=== PATIENT | male | born 1970 | race Caucasian/White ===

== ENCOUNTER 2024-02-22 23:24 | Inpatient (IN) ==
--- NOTE | 2024-02-23 00:05 | Emergency Department Note ---
History of Present Illness General Chief complaint: Groin Pain Stated complaint: SEVERE SHARP ABD/GROIN, VOMITING, FEVER, CHILLS Time Seen by Provider: 02/22/24 23:45 History of Present Illness Maximum Pain Intensity: 8 This is a 54-year-old male presenting to the emergency department for evaluation of very low abdominal pain and fever. Patient symptoms began around 5 AM on 02/22/2024. The discomfort was very low in the abdomen and near the rectum. The patient is usually healthy taking medication for blood pressure and dyslipidemia. He has been running a fever off and on today, and explains that his symptoms have otherwise been waxing and waning. The patient discomfort increased tonight, prompting presentation to the ER. He feels like he is using the bathroom fairly normally. His pain does not lateralize to 1 side of the abdomen or the other. He has not had symptoms like this in the past. Discomfort is currently rated an 8/10. No history of abdominal surgery. Home Medications Medication Instructions Recorded Confirmed Type atorvastatin 40 mg tablet 40 mg PO QAM 02/23/24 02/23/24 History losartan 50 mg tablet 50 mg PO QAM 02/23/24 02/23/24 History Allergies Allergy/AdvReac Type Severity Reaction Status Date / Time No Known Allergies Allergy Verified 02/23/24 01:21 Past Med/Surg History Medical History No chronic diseases present Surgical History No significant past surgical history Social History Smoking Status: Never smoker Preferred Language: [place] Island[place] Feels Safe at Home: Yes Review of Systems A total of 10 systems reviewed and were otherwise negative Physical Exam Vital Signs Vital Signs - 24 hr 02/22/24 23:33 02/22/24 23:52 02/23/24 00:03 Temperature 37.9 C H Temperature Source Oral Pulse Rate 92 H 112 H Pulse Rate [Finger] 112 H Respiratory Rate 18 17 19 Respiratory Effort / Characteristics Non-Labored Spontaneous Respiratory Depth Normal Respiratory Pattern Regular Blood Pressure 123/73 Blood Pressure [Right Arm] 140/93 Blood Pressure Mean 89 Blood Pressure Mean [Right Arm] 108 Blood Pressure Position Sitting Pulse Oximetry 92 92 91 Oxygen Delivery Method Room Air Room Air Room Air Oxygen Flow Rate 0 Sepsis Recent Fever Within 48 Hours Yes Sepsis New/Unexplained Change in Mental Status N/A Sepsis Action Taken by Nursing No Action Required 02/23/24 00:22 02/23/24 01:20 02/23/24 03:00 Temperature Temperature Source Pulse Rate 113 H Pulse Rate [Finger] 114 H 119 H Respiratory Rate 19 19 Respiratory Effort / Characteristics Respiratory Depth Respiratory Pattern Blood Pressure Blood Pressure [Right Arm] 152/78 H 118/72 Blood Pressure Mean Blood Pressure Mean [Right Arm] 102 87 Blood Pressure Position Pulse Oximetry 93 93 Oxygen Delivery Method Room Air Room Air Oxygen Flow Rate Sepsis Recent Fever Within 48 Hours Sepsis New/Unexplained Change in Mental Status Sepsis Action Taken by Nursing 02/23/24 05:00 02/23/24 05:00 02/23/24 06:00 Temperature Temperature Source Pulse Rate 108 H Pulse Rate [Finger] 99 H 97 H Respiratory Rate 19 13 Respiratory Effort / Characteristics Respiratory Depth Respiratory Pattern Blood Pressure Blood Pressure [Right Arm] 107/79 133/70 Blood Pressure Mean Blood Pressure Mean [Right Arm] 88 91 Blood Pressure Position Pulse Oximetry 94 94 Oxygen Delivery Method Room Air Room Air Oxygen Flow Rate Sepsis Recent Fever Within 48 Hours Sepsis New/Unexplained Change in Mental Status Sepsis Action Taken by Nursing VITALS: Vitals are noted on the nurse's note and reviewed by myself. Vital signs with fever and tachycardia GENERAL: Well-developed, well-nourished, white male, who is in no acute distress and resting comfortably. Patient is cooperative with the examination. HEAD: Normocephalic atraumatic. EARS: External ear normal. External auditory canals clear, tympanic membranes pearly dukes without erythema or effusion bilaterally. EYES: Pupils equal round and reactive to light and accommodation. Conjunctivae without injection, sclerae without icterus. Extraocular movements intact. NOSE: Patent, turbinates without inflammation or discharge. MOUTH: Mucous membranes moist. Tonsils are not enlarged. Pharynx without erythema, blood, or exudate. Uvula midline. Airway patent. NECK: Supple without nuchal rigidity. No lymphadenopathy. No thyromegaly. Cervical spine is nontender. HEART: Regular rate and rhythm without murmurs gallops or rubs. LUNGS: Clear to auscultation bilaterally without wheezes, rales or rhonchi. No retractions or accessory muscle use. ABDOMEN: Positive normal bowel sounds x 4. Soft, nontender, without masses or organomegaly. No guarding or rebound tenderness. MUSCULOSKELETAL: No muscle atrophy, erythema, or edema noted. Full range of motion in all extremities. Course Administered Medications Discontinued Medications Sodium Chloride (Nss) 1,000 mls @ 999 mls/hr IV .Q1H1M LAUREN Stop: 02/23/24 00:45 Last Infusion: 02/23/24 02:36 Dose: Infused Documented By: Admin: 02/23/24 01:22 Dose: 999 mls/hr Documented By: YAZMIN Acetaminophen (Ofirmev) 1,000 mg in 100 mls @ 400 mls/hr IV NOW STA Stop: 02/23/24 00:15 Last Infusion: 02/23/24 02:36 Dose: Infused Documented By: Admin: 02/23/24 01:31 Dose: 400 mls/hr Documented By: YAZMIN Sodium Chloride (Nss) 1,000 mls @ 999 mls/hr IV .Q1H1M LAUREN Stop: 02/23/24 01:15 Last Infusion: 02/23/24 02:36 Dose: Infused Documented By: Admin: 02/23/24 01:32 Dose: 999 mls/hr Documented By: YAZMIN Piperacillin Sod/Tazobactam Sod (Zosyn) 4.5 gm in 100 mls @ 200 mls/hr IV NOW ONE Stop: 02/23/24 06:06 Last Admin: 02/23/24 06:15 Dose: 200 mls/hr Documented By: YAZMIN Ioversol (Optiray 320 100ml) 93 ml IV ONCE ONE Stop: 02/23/24 01:49 Last Admin: 02/23/24 01:48 Dose: 93 ml Documented By: CINTHYA Morphine Sulfate (Morphine Sulfate 4 Mg/Ml 1 Ml Carp\Vial) 4 mg IV Q30M PRN PRN Reason: Pain Stop: 03/07/24 23:58 Last Admin: 02/23/24 01:24 Dose: 4 mg Documented By: YAZMIN Ondansetron HCl (Ondansetron Inj 2 Mg/Ml 2 Ml Vial) 4 mg IV NOW STA Stop: 02/23/24 00:00 Last Admin: 02/23/24 01:22 Dose: 4 mg Documented By: YAZMIN Medical Decision Making Differential Diagnosis Differential diagnosis: Etiologies such as biliary colic, cholecystitis, hepatitis, pancreatitis, cardiac disease, pancreatitis, gastritis, peptic ulcer disease, appendicitis, cystitis, diverticulitis, mesenteric ischemia, inflammatory bowel disease, ileus, bowel obstruction, testicular/adnexal torsion, aortic pathology, shingles, as well as others were considered Laboratory Data 02/23/24 00:04 02/23/24 00:04 Lab Results 02/23/24 02/23/24 02/23/24 Range/Units 00:04 00:06 01:20 WBC 10.94 H (4.8-10.8) K/ul RBC 4.74 (4.70-6.10) M/uL Hgb 14.2 (14.0-18.0) g/dl Hct 40.9 L (42.0-52.0) % MCV 86.3 (80.0-100.0) fL MCH 30.0 (25.0-34.0) pg MCHC 34.7 (32.0-36.0) g/dL RDW Std Deviation 39.7 (36.4-46.3) fL RDW Coeff of Sandra 12.7 (11.5-14.5) % Plt Count 180 (130-400) K/uL MPV 10.3 (9.4-12.4) fL Immature Gran % (Auto) 0.5 % Neut % (Auto) 86.7 % Lymph % (Auto) 5.4 % [place] % (Auto) 6.8 % Eos % (Auto) 0.1 % Baso % (Auto) 0.5 % Neut # (Auto) 9.49 H (1.40-6.50) K/uL Lymph # (Auto) 0.59 L (1.20-3.40) K/uL [place] # (Auto) 0.74 H (0.11-0.59) K/uL Eos # (Auto) 0.01 (0.00-0.50) K/uL Baso # (Auto) 0.05 (0.00-0.20) K/uL Immature Gran # (Auto) 0.06 (0.01-0.20) K/uL Sodium 138 (136-145) mmol/L Potassium 3.5 (3.5-5.1) mmol/L Chloride 105 (98-107) mmol/L Carbon Dioxide 23 (21-32) mmol/L Anion Gap 10 (3-11) BUN 21 (6-23) mg/dl Creatinine 1.09 (0.6-1.4) mg/dl Est Cr Clr Drug Dosing 90.1 ml/min Est GFR ( Amer) 88.7 ml/min Est GFR (Non-Af Amer) 76.5 ml/min BUN/Creatinine Ratio 19.3 (10-20) Glucose 167 H (70-99(Fasting)) mg/dl Lactate 1.5 (0.4-2.0) mmol/L Calcium 9.0 (8.6-10.3) mg/dl Total Bilirubin 0.8 (0.2-1.0) mg/dl AST 19 (13-39) U/L ALT 20 (7-52) U/L Alkaline Phosphatase 56 (34-104) U/L Troponin I High Sens 2.7 (0-20) pg/ml Total Protein 6.4 (6.0-8.3) gm/dl Albumin 4.2 (3.4-5.0) gm/dl Globulin 2.2 L (2.5-4.0) gm/dl Albumin/Globulin Ratio 1.9 (0.9-2) Lipase 11 (11-82) U/L Urine Color Urine Appearance (Clear) Urine pH (4.5-7.5) Ur Specific [place] (1.000-1.030) Urine Protein (Negative) Urine Glucose (UA) (Negative) Urine Ketones (Negative) Urine Blood (Negative) Urine Nitrite (Negative) Urine Bilirubin (Negative) Urine Urobilinogen (Negative) Ur Leukocyte Esterase (Negative) Adenovirus (PCR) Not Detected (NotDetected) B. pertussis DNA (PCR) Not Detected (NotDetected) B.parapertussis DNA PCR Not Detected (NotDetected) C. pneumoniae DNA (PCR) Not Detected (NotDetected) Coronavirus OC43 (PCR) Not Detected (NotDetected) Coronavirus HKU1 (PCR) Not Detected (NotDetected) Coronavirus 229E (PCR) Not Detected (NotDetected) SARS-CoV-2 (PCR) Not Detected (NotDetected) Coronavirus NL63 (PCR) Not Detected (NotDetected) Human Metapneumovir PCR Not Detected (NotDetected) Influenza Type A (PCR) Not Detected (NotDetected) Influenza Type B (PCR) Not Detected (NotDetected) M. pneumoniae (PCR) Not Detected (NotDetected) Parainfluenza 1 (PCR) Not Detected (NotDetected) Parainfluenza 2 (PCR) Not Detected (NotDetected) Parainfluenza 3 (PCR) Not Detected (NotDetected) Parainfluenza 4 (PCR) Not Detected (NotDetected) RSV (PCR) Not Detected (NotDetected) Entero/Rhino (PCR) Not Detected (NotDetected) 02/23/24 Range/Units 03:15 WBC (4.8-10.8) K/ul RBC (4.70-6.10) M/uL Hgb (14.0-18.0) g/dl Hct (42.0-52.0) % MCV (80.0-100.0) fL MCH (25.0-34.0) pg MCHC (32.0-36.0) g/dL RDW Std Deviation (36.4-46.3) fL RDW Coeff of Sandra (11.5-14.5) % Plt Count (130-400) K/uL MPV (9.4-12.4) fL Immature Gran % (Auto) % Neut % (Auto) % Lymph % (Auto) % [place] % (Auto) % Eos % (Auto) % Baso % (Auto) % Neut # (Auto) (1.40-6.50) K/uL Lymph # (Auto) (1.20-3.40) K/uL [place] # (Auto) (0.11-0.59) K/uL Eos # (Auto) (0.00-0.50) K/uL Baso # (Auto) (0.00-0.20) K/uL Immature Gran # (Auto) (0.01-0.20) K/uL Sodium (136-145) mmol/L Potassium (3.5-5.1) mmol/L Chloride (98-107) mmol/L Carbon Dioxide (21-32) mmol/L Anion Gap (3-11) BUN (6-23) mg/dl Creatinine (0.6-1.4) mg/dl Est Cr Clr Drug Dosing ml/min Est GFR ( Amer) ml/min Est GFR (Non-Af Amer) ml/min BUN/Creatinine Ratio (10-20) Glucose (70-99(Fasting)) mg/dl Lactate (0.4-2.0) mmol/L Calcium (8.6-10.3) mg/dl Total Bilirubin (0.2-1.0) mg/dl AST (13-39) U/L ALT (7-52) U/L Alkaline Phosphatase (34-104) U/L Troponin I High Sens (0-20) pg/ml Total Protein (6.0-8.3) gm/dl Albumin (3.4-5.0) gm/dl Globulin (2.5-4.0) gm/dl Albumin/Globulin Ratio (0.9-2) Lipase (11-82) U/L Urine Color Yellow Urine Appearance Clear (Clear) Urine pH 5.5 (4.5-7.5) Ur Specific [place] > 1.045 H (1.000-1.030) Urine Protein Negative (Negative) Urine Glucose (UA) Negative (Negative) Urine Ketones 1+ H (Negative) Urine Blood Negative (Negative) Urine Nitrite Negative (Negative) Urine Bilirubin Negative (Negative) Urine Urobilinogen Negative (Negative) Ur Leukocyte Esterase Negative (Negative) Adenovirus (PCR) (NotDetected) B. pertussis DNA (PCR) (NotDetected) B.parapertussis DNA PCR (NotDetected) C. pneumoniae DNA (PCR) (NotDetected) Coronavirus OC43 (PCR) (NotDetected) Coronavirus HKU1 (PCR) (NotDetected) Coronavirus 229E (PCR) (NotDetected) SARS-CoV-2 (PCR) (NotDetected) Coronavirus NL63 (PCR) (NotDetected) Human Metapneumovir PCR (NotDetected) Influenza Type A (PCR) (NotDetected) Influenza Type B (PCR) (NotDetected) M. pneumoniae (PCR) (NotDetected) Parainfluenza 1 (PCR) (NotDetected) Parainfluenza 2 (PCR) (NotDetected) Parainfluenza 3 (PCR) (NotDetected) Parainfluenza 4 (PCR) (NotDetected) RSV (PCR) (NotDetected) Entero/Rhino (PCR) (NotDetected) Imaging Data Radiologist's Impression: Abdomen/Pelvis CT 02/22/24 23:59 CR Exam(s): CT ABDOMEN + PELVIS With Contrast IV Amt: 93 ml opti 320 EXAM: CT Abdomen and Pelvis With Intravenous Contrast CLINICAL HISTORY: Reason for exam: low abd pain, fever. TECHNIQUE: Axial computed tomography images of the abdomen and pelvis with intravenous contrast. CTDI is 20.78 mGy and DLP is 1208.6 mGy-cm. Automated exposure control was utilized for the study. A dose lowering technique was utilized adhering to the principles of ALARA. CONTRAST: Patient received 93 ml opti 320 of IV contrast COMPARISON: No relevant prior studies available. FINDINGS: Lung bases: Unremarkable. No mass. No consolidation. ABDOMEN: Liver: Unremarkable. No mass. Gallbladder and bile ducts: Unremarkable. No calcified stones. No ductal dilation. Pancreas: Unremarkable. No mass. No ductal dilation. Spleen: Small splenules. Adrenals: Unremarkable. No mass. Kidneys and ureters: Unremarkable. No solid mass. No hydronephrosis. Stomach and bowel: Perforated diverticulitis with foci of air adjacent to the sigmoid colon (series 300 image 49). This is seen with diffuse annular thickening and submucosal enhancement of the distal sigmoid colon and rectum. No evidence of bowel obstruction. PELVIS: Appendix: Normal appendix. Bladder: Unremarkable. No mass. Reproductive: Prostatic calcifications. ABDOMEN and PELVIS: Intraperitoneal space: Mild dependent pelvic fluid which is likely reactive in nature. No free air. Bones/joints: Degenerative changes in the spine. No acute fracture. No dislocation. Soft tissues: Gynecomastia. Umbilical hernia containing fat. Vasculature: Unremarkable. No abdominal aortic aneurysm. Lymph nodes: Unremarkable. No enlarged lymph nodes. IMPRESSION: 1. Perforated diverticulitis with foci of air adjacent to the sigmoid colon (series 300 image 49). This is seen with diffuse annular thickening and submucosal enhancement of the distal sigmoid colon and rectum. 2. Mild dependent pelvic fluid which is likely reactive in nature. 3. No abscess detected. 4. No other acute findings. 5. Incidental findings as described. Communications: Verify Receipt Electronically signed by: Clayton Bethea MD 02/23/24 05:35 AM MDM Narrative Physical exam and history were performed. Nursing notes, EMR, and Medication List were personally reviewed. No social concerns were identified as barriers to patients care. Patient appears to have very low abdominal pain bringing him to the ER. He does not have significant reproducible tenderness, but he describes his discomfort as very low in his pelvis. IV access was established and labs were obtained. Blood cultures were performed. Bio fire gathered. Patient was hydrated with 2 L normal saline and given IV morphine, IV Zofran, and IV Tylenol. Patient was sent to CT scan for imaging of his abdomen/pelvis. Patient's blood work is as above and was reviewed. He does not have a significantly elevated white blood cell count, gross anemia, bandemia, or significant electrolyte imbalance. Transaminases are not diagnostic. Lactic is negative. Bio fire negative. Urine without evidence of infection. CT scan was performed and reviewed by myself and radiology. The patient appears to have a perforated diverticulitis without abscess. Case was discussed with my attending. Patient was given IV Zosyn. Escalation of care is necessary for this patient. I did discuss the case with both the on-call surgeon, Dr. Neil, as well as the on-call [facility] hospitalist team. Please see the hospitalist and specialist dictations for further patient course, plan, and disposition. The chart was completed utilizing [email or web address] Speech Voice Recognition Software. Grammatical errors, random word insertions, pronoun errors, and incomplete sentences are an occasional consequence of this system due to software limitations, ambient noise, and hardware issues. Any formal questions or concerns about the content, text, or information contained within the body of this dictation should be directly addressed to the provider for clarification. . Impression & Plan Perforated diverticulum Discharge Plan Visit Data Chief Complaint: Groin Pain Stated Complaint: SEVERE SHARP ABD/GROIN, VOMITING, FEVER, CHILLS ED Provider: Olive Harper ED Midlevel Provider: Cade Castellanos Discharge Problem: Perforated diverticulum Forms Stand Alone Forms: My [facility] Prescriptions Prescriptions: No Action losartan 50 mg tablet 50 mg PO QAM atorvastatin 40 mg tablet 40 mg PO QAM Referrals Referrals: PCP,NO [Physician] -
[2024-02-23 00:34] LABS: Basophils # (auto) 0.05 K/uL (0.00-0.20); Basophils % (auto) 0.5 %; Eosinophils # (auto) 0.01 K/uL (0.00-0.50); Eosinophils % (auto) 0.1 %; Hematocrit (blood only) 40.9 % (42.0-52.0); Hemoglobin 14.2 g/dl (14.0-18.0); Immature Granulocytes # (auto) 0.06 K/uL (0.01-0.20); Immature Granulocytes % (auto) 0.5 %; Lymphocytes # (auto) 0.59 K/uL (1.20-3.40); Lymphocytes % (auto) 5.4 %; Mean Corpuscular Hgb Conc 34.7 g/dL (32.0-36.0); Mean Corpuscular Volume 86.3 fL (80.0-100.0); Mean Platelet Volume 10.3 fL (9.4-12.4); Monocytes # (auto) 0.74 K/uL (0.11-0.59); Monocytes % (auto) 6.8 %; Neutrophils # (auto) 9.49 K/uL (1.40-6.50); Neutrophils % (auto) 86.7 %; Platelet Count 180 K/uL (130-400); RDW Coefficient of Variation 12.7 % (11.5-14.5); RDW Standard Deviation 39.7 fL (36.4-46.3); Red Blood Count 4.74 M/uL (4.70-6.10); White Blood Count 10.94 K/ul (4.8-10.8)
[2024-02-23 00:49] LABS: Albumin Globulin Ratio 1.9 (0.9-2); Albumin Level 4.2 gm/dl (3.4-5.0); BUN Creatinine Ratio 19.3 (10-20); Bilirubin,Total 0.8 mg/dl (0.2-1.0); Creatinine Clr Calc Pharmacy 90.1 ml/min; Est GFR (African American) 88.7 ml/min; Est GFR (Non-African American) 76.5 ml/min; Globulin 2.2 gm/dl (2.5-4.0); Potassium 3.5 mmol/L (3.5-5.1); Total Protein 6.4 gm/dl (6.0-8.3)
[2024-02-23 00:56] LABS: Troponin I High Sensitivity 2.7 pg/ml (0-20)
[2024-02-23 01:16] LABS: Adenovirus PCR Not Detected (NotDetected); Bordetella parapertussis PCR Not Detected (NotDetected); Bordetella pertussis PCR Not Detected (NotDetected); Chlamydia pneumoniae PCR Not Detected (NotDetected); Coronavirus 229E PCR Not Detected (NotDetected); Coronavirus CoV-2 (COVID19)PCR Not Detected (NotDetected); Coronavirus HKU1 PCR Not Detected (NotDetected); Coronavirus NL63 PCR Not Detected (NotDetected); Coronavirus OC43PCR Not Detected (NotDetected); Human Metapneumovirus PCR Not Detected (NotDetected); Influenza A PCR Not Detected (NotDetected); Influenza B PCR Not Detected (NotDetected); Mycoplasma pneumoniae PCR Not Detected (NotDetected); Parainfluenza Virus 1 PCR Not Detected (NotDetected); Parainfluenza Virus 2 PCR Not Detected (NotDetected); Parainfluenza Virus 3 PCR Not Detected (NotDetected); Parainfluenza Virus 4 PCR Not Detected (NotDetected); Respiratory Syncytial VirusPCR Not Detected (NotDetected); Rhinovirus/Enterovirus PCR Not Detected (NotDetected)
[2024-02-23] MEDS: SODIUM CHLORIDE 0.9% 1,000 ML IV SCH ×3 (01:22→21:53)
[2024-02-23] MEDS: ONDANSETRON INJ 2 MG/ML 2 ML VIAL IV STA (01:22)
[2024-02-23] MEDS: MoRPHine SULFATE 4 MG/ML 1 ML CARP\\VIAL IV PRN (01:24)
[2024-02-23] MEDS: ACETAMINOPHEN 1,000 MG/100 ML VIAL IV STA (01:31)
[2024-02-23] MEDS: OPTIRAY 320 100ml IV ONE (01:48)
[2024-02-23 03:36] LABS: Appearance Urine Clear (Clear); Bilirubin Urine Negative (Negative); Blood Urine Negative (Negative); Color Urine Yellow; Glucose Urine UA Negative (Negative); Ketones Urine 1+ (Negative); Leukocyte Esterase Urine Negative (Negative); Nitrite Urine Negative (Negative); Protein Urine Negative (Negative); Specific Gravity Urine > 1.045 (1.000-1.030); Urobilinogen Urine Negative (Negative); pH Urine 5.5 (4.5-7.5)
--- NOTE | 2024-02-23 05:36 | CT Scan Report ---
Exam(s): CT ABDOMEN + PELVIS With Contrast IV Amt: 93 ml opti 320 EXAM: CT Abdomen and Pelvis With Intravenous Contrast CLINICAL HISTORY: Reason for exam: low abd pain, fever. TECHNIQUE: Axial computed tomography images of the abdomen and pelvis with intravenous contrast. CTDI is 20.78 mGy and DLP is 1208.6 mGy-cm. Automated exposure control was utilized for the study. A dose lowering technique was utilized adhering to the principles of ALARA. CONTRAST: Patient received 93 ml opti 320 of IV contrast COMPARISON: No relevant prior studies available. FINDINGS: Lung bases: Unremarkable. No mass. No consolidation. ABDOMEN: Liver: Unremarkable. No mass. Gallbladder and bile ducts: Unremarkable. No calcified stones. No ductal dilation. Pancreas: Unremarkable. No mass. No ductal dilation. Spleen: Small splenules. Adrenals: Unremarkable. No mass. Kidneys and ureters: Unremarkable. No solid mass. No hydronephrosis. Stomach and bowel: Perforated diverticulitis with foci of air adjacent to the sigmoid colon (series 300 image 49). This is seen with diffuse annular thickening and submucosal enhancement of the distal sigmoid colon and rectum. No evidence of bowel obstruction. PELVIS: Appendix: Normal appendix. Bladder: Unremarkable. No mass. Reproductive: Prostatic calcifications. ABDOMEN and PELVIS: Intraperitoneal space: Mild dependent pelvic fluid which is likely reactive in nature. No free air. Bones/joints: Degenerative changes in the spine. No acute fracture. No dislocation. Soft tissues: Gynecomastia. Umbilical hernia containing fat. Vasculature: Unremarkable. No abdominal aortic aneurysm. Lymph nodes: Unremarkable. No enlarged lymph nodes. IMPRESSION: 1. Perforated diverticulitis with foci of air adjacent to the sigmoid colon (series 300 image 49). This is seen with diffuse annular thickening and submucosal enhancement of the distal sigmoid colon and rectum. 2. Mild dependent pelvic fluid which is likely reactive in nature. 3. No abscess detected. 4. No other acute findings. 5. Incidental findings as described. Communications: Verify Receipt Electronically signed by: Clayton Bethea MD 02/23/24 05:35 AM
[2024-02-23] MEDS: PIPERACILLIN/TAZOBACTAM 4.5 GM/100 ML BAG IV ONE (06:15)
--- NOTE | 2024-02-23 06:46 | History & Physical Report ---
Date of Service February 23, 2024 Assessment & Plan (1) Sepsis: Plan: Secondary to complicated diverticulitis Hypertension, stable Hyperlipidemia statin Rx Hyperglycemia rule out DM Medical telemetry CS, Zosyn General surgery consult Re: Complicated diverticulitis (ER provider already in touch with Dr. Neil.) Strict n.p.o. for now until patient seen by General Surgery Outpatient GI consult for diverticulitis Check hemoglobin A1c DVT prophylaxis. Lovenox subcu Full code Text document was generated using [employer] voice recognition software. It may contain grammatical or spelling errors. Kindly contact undersigned for clarification of any documentation item in question. History of Present Illness Chief Complaint: Abdominal pain Primary Care Provider: Darrius Shah DO History obtained from patient and records. Medical history significant for hypertension, hyperlipidemia. Patient woke up yesterday morning with lower achy abdominal pain which persistent and worsened overnight. Some nausea, emesis, fever or chills. No previous episodes. No constipation or diarrhea symptoms. Patient denies chest pain, SOB. Zosyn administered at the ER for sepsis. 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 Allergies Allergy/AdvReac Type Severity Reaction Status Date / Time No Known Allergies Allergy Verified 02/23/24 01:21 Home Medications Medication Instructions Recorded Confirmed Type atorvastatin 40 mg tablet 40 mg PO QAM 02/23/24 02/23/24 History losartan 50 mg tablet 50 mg PO QAM 02/23/24 02/23/24 History Past Med/Surg History Medical History No chronic diseases present Surgical History No significant past surgical history Social History Smoking Status: Never smoker Preferred Language: [place] Feels Safe at Home: Yes Review of Systems Review of Systems: As per HPI, all other systems reviewed and negative Physical Exam Physical Exam: GENERAL: Comfortable, pleasant, no respiratory distress SKIN: Normal color, warm HEENT: Alopecia, Vanderbilt palpebral conjunctivae, no ptosis, dry buccal mucosa NECK : Supple, no tenderness CHEST : CTA, no tenderness HEART : RRR, no obvious murmurs ABDOMEN: Some distention, minimal hypogastric tenderness EXTREMITIES : No LE swelling/tenderness, no other conspicuous deformities noted NEUROLOGIC : Coherent, no facial asymmetry, no other gross focality Results & Data Results & Data Vital Signs (Past 12 Hours) Vital Signs Temp Pulse Pulse Resp BP BP Pulse Ox 02/23/24 06:00 97 H 13 133/70 94 02/23/24 05:00 99 H 19 107/79 94 02/23/24 05:00 108 H 02/23/24 03:00 119 H 19 118/72 93 02/23/24 01:20 114 H 19 152/78 H 93 02/23/24 00:22 113 H 02/23/24 00:03 112 H 19 91 02/22/24 23:52 112 H 17 140/93 92 02/22/24 23:33 37.9 C H 92 H 18 123/73 92 O2 Del Method O2 Flow Rate 02/23/24 06:00 Room Air 02/23/24 05:00 Room Air 02/23/24 05:00 02/23/24 03:00 Room Air 02/23/24 01:20 Room Air 02/23/24 00:22 02/23/24 00:03 Room Air 0 02/22/24 23:52 Room Air 02/22/24 23:33 Room Air Laboratory Results Laboratory Results WBC 10.94 K/ul (4.8-10.8) H 02/23/24 00:04 RBC 4.74 M/uL (4.70-6.10) 02/23/24 00:04 Hgb 14.2 g/dl (14.0-18.0) 02/23/24 00:04 Hct 40.9 % (42.0-52.0) L 02/23/24 00:04 MCV 86.3 fL (80.0-100.0) 02/23/24 00:04 MCH 30.0 pg (25.0-34.0) 02/23/24 00:04 MCHC 34.7 g/dL (32.0-36.0) 02/23/24 00:04 RDW Std Deviation 39.7 fL (36.4-46.3) 02/23/24 00:04 RDW Coeff of Sandra 12.7 % (11.5-14.5) 02/23/24 00:04 Plt Count 180 K/uL (130-400) 02/23/24 00:04 MPV 10.3 fL (9.4-12.4) 02/23/24 00:04 Immature Gran % (Auto) 0.5 % 02/23/24 00:04 Neut % (Auto) 86.7 % 02/23/24 00:04 Lymph % (Auto) 5.4 % 02/23/24 00:04 Orange % (Auto) 6.8 % 02/23/24 00:04 Eos % (Auto) 0.1 % 02/23/24 00:04 Baso % (Auto) 0.5 % 02/23/24 00:04 Neut # (Auto) 9.49 K/uL (1.40-6.50) H 02/23/24 00:04 Lymph # (Auto) 0.59 K/uL (1.20-3.40) L 02/23/24 00:04 Orange # (Auto) 0.74 K/uL (0.11-0.59) H 02/23/24 00:04 Eos # (Auto) 0.01 K/uL (0.00-0.50) 02/23/24 00:04 Baso # (Auto) 0.05 K/uL (0.00-0.20) 02/23/24 00:04 Immature Gran # (Auto) 0.06 K/uL (0.01-0.20) 02/23/24 00:04 Sodium 138 mmol/L (136-145) 02/23/24 00:04 Potassium 3.5 mmol/L (3.5-5.1) 02/23/24 00:04 Chloride 105 mmol/L (98-107) 02/23/24 00:04 Carbon Dioxide 23 mmol/L (21-32) 02/23/24 00:04 Anion Gap 10 (3-11) 02/23/24 00:04 BUN 21 mg/dl (6-23) 02/23/24 00:04 Creatinine 1.09 mg/dl (0.6-1.4) 02/23/24 00:04 Est Cr Clr Drug Dosing 90.1 ml/min 02/23/24 00:04 Est GFR ( Amer) 88.7 ml/min 02/23/24 00:04 Est GFR (Non-Af Amer) 76.5 ml/min 02/23/24 00:04 BUN/Creatinine Ratio 19.3 (10-20) 02/23/24 00:04 Glucose 167 mg/dl (70-99(Fasting)) H 02/23/24 00:04 Lactate 1.5 mmol/L (0.4-2.0) 02/23/24 01:20 Calcium 9.0 mg/dl (8.6-10.3) 02/23/24 00:04 Total Bilirubin 0.8 mg/dl (0.2-1.0) 02/23/24 00:04 AST 19 U/L (13-39) 02/23/24 00:04 ALT 20 U/L (7-52) 02/23/24 00:04 Alkaline Phosphatase 56 U/L (34-104) 02/23/24 00:04 Troponin I High Sens 2.7 pg/ml (0-20) 02/23/24 00:04 Total Protein 6.4 gm/dl (6.0-8.3) 02/23/24 00:04 Albumin 4.2 gm/dl (3.4-5.0) 02/23/24 00:04 Globulin 2.2 gm/dl (2.5-4.0) L 02/23/24 00:04 Albumin/Globulin Ratio 1.9 (0.9-2) 02/23/24 00:04 Lipase 11 U/L (11-82) 02/23/24 00:04 Urine Color Yellow 02/23/24 03:15 Urine Appearance Clear (Clear) 02/23/24 03:15 Urine pH 5.5 (4.5-7.5) 02/23/24 03:15 Ur Specific [place] > 1.045 (1.000-1.030) H 02/23/24 03:15 Urine Protein Negative (Negative) 02/23/24 03:15 Urine Glucose (UA) Negative (Negative) 02/23/24 03:15 Urine Ketones 1+ (Negative) H 02/23/24 03:15 Urine Blood Negative (Negative) 02/23/24 03:15 Urine Nitrite Negative (Negative) 02/23/24 03:15 Urine Bilirubin Negative (Negative) 02/23/24 03:15 Urine Urobilinogen Negative (Negative) 02/23/24 03:15 Ur Leukocyte Esterase Negative (Negative) 02/23/24 03:15 Adenovirus (PCR) Not Detected (NotDetected) 02/23/24 00:06 B. pertussis DNA (PCR) Not Detected (NotDetected) 02/23/24 00:06 B.parapertussis DNA PCR Not Detected (NotDetected) 02/23/24 00:06 C. pneumoniae DNA (PCR) Not Detected (NotDetected) 02/23/24 00:06 Coronavirus OC43 (PCR) Not Detected (NotDetected) 02/23/24 00:06 Coronavirus HKU1 (PCR) Not Detected (NotDetected) 02/23/24 00:06 Coronavirus 229E (PCR) Not Detected (NotDetected) 02/23/24 00:06 SARS-CoV-2 (PCR) Not Detected (NotDetected) 02/23/24 00:06 Coronavirus NL63 (PCR) Not Detected (NotDetected) 02/23/24 00:06 Human Metapneumovir PCR Not Detected (NotDetected) 02/23/24 00:06 Influenza Type A (PCR) Not Detected (NotDetected) 02/23/24 00:06 Influenza Type B (PCR) Not Detected (NotDetected) 02/23/24 00:06 M. pneumoniae (PCR) Not Detected (NotDetected) 02/23/24 00:06 Parainfluenza 1 (PCR) Not Detected (NotDetected) 02/23/24 00:06 Parainfluenza 2 (PCR) Not Detected (NotDetected) 02/23/24 00:06 Parainfluenza 3 (PCR) Not Detected (NotDetected) 02/23/24 00:06 Parainfluenza 4 (PCR) Not Detected (NotDetected) 02/23/24 00:06 RSV (PCR) Not Detected (NotDetected) 02/23/24 00:06 Entero/Rhino (PCR) Not Detected (NotDetected) 02/23/24 00:06 Impressions Abdomen/Pelvis CT 02/22/24 23:59 CR Exam(s): CT ABDOMEN + PELVIS With Contrast IV Amt: 93 ml opti 320 EXAM: CT Abdomen and Pelvis With Intravenous Contrast CLINICAL HISTORY: Reason for exam: low abd pain, fever. TECHNIQUE: Axial computed tomography images of the abdomen and pelvis with intravenous contrast. CTDI is 20.78 mGy and DLP is 1208.6 mGy-cm. Automated exposure control was utilized for the study. A dose lowering technique was utilized adhering to the principles of ALARA. CONTRAST: Patient received 93 ml opti 320 of IV contrast COMPARISON: No relevant prior studies available. FINDINGS: Lung bases: Unremarkable. No mass. No consolidation. ABDOMEN: Liver: Unremarkable. No mass. Gallbladder and bile ducts: Unremarkable. No calcified stones. No ductal dilation. Pancreas: Unremarkable. No mass. No ductal dilation. Spleen: Small splenules. Adrenals: Unremarkable. No mass. Kidneys and ureters: Unremarkable. No solid mass. No hydronephrosis. Stomach and bowel: Perforated diverticulitis with foci of air adjacent to the sigmoid colon (series 300 image 49). This is seen with diffuse annular thickening and submucosal enhancement of the distal sigmoid colon and rectum. No evidence of bowel obstruction. PELVIS: Appendix: Normal appendix. Bladder: Unremarkable. No mass. Reproductive: Prostatic calcifications. ABDOMEN and PELVIS: Intraperitoneal space: Mild dependent pelvic fluid which is likely reactive in nature. No free air. Bones/joints: Degenerative changes in the spine. No acute fracture. No dislocation. Soft tissues: Gynecomastia. Umbilical hernia containing fat. Vasculature: Unremarkable. No abdominal aortic aneurysm. Lymph nodes: Unremarkable. No enlarged lymph nodes. IMPRESSION: 1. Perforated diverticulitis with foci of air adjacent to the sigmoid colon (series 300 image 49). This is seen with diffuse annular thickening and submucosal enhancement of the distal sigmoid colon and rectum. 2. Mild dependent pelvic fluid which is likely reactive in nature. 3. No abscess detected. 4. No other acute findings. 5. Incidental findings as described. Communications: Verify Receipt Electronically signed by: Clayton Bethea MD 02/23/24 05:35 AM Diagnostic Findings EKG as per my interpretation : Rate 110, sinus tachycardia, normal axis, no ischemia
[2024-02-23] MEDS ORDERED: PROMETHAZINE HCL 6.25 MG in SODIUM CHLORIDE 0.9% 50 ML IV PRN (06:50)
[2024-02-23] MEDS ORDERED: MoRPHine SULFATE 4 MG/ML 1 ML CARP\\VIAL IV PRN (06:50)
[2024-02-23] MEDS ORDERED: LORazepam 0.5 MG in SYRINGE 0.25 ML IV PRN (06:50)
[2024-02-23] MEDS: NSS + 20MEQ KCL 20 MEQ/1,000 ML BAG IV ONE (07:03)
[2024-02-23 07:08] LABS: Magnesium 1.9 mg/dl (1.7-2.4)
[2024-02-23 07:30] LABS: Estimated Average Glucose 117 mg/dl; Hemoglobin A1C 5.7 % (4.5-5.6)
--- NOTE | 2024-02-23 07:43 | Surgery Consultation ---
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 Pain started 24 hours ago, resolved temporarily, then again worsened yesterday evening. Pain mostly located in supra-pubic region and lower abdomen, rating it an 8/10, associated with low grade temps/chills/nausea. Due to his symptoms he presented to the ER for further evaluation. A CT a/p was obtained that revealed evidence of perforated diverticulitis with foci of air adjacent to the sigmoid colon, without evidence of abscess. WBC 10.9, Hbg 14, Cr 1. Vitals show HR 80s-1 10's with low grade temps of 100F. Pressures are stable. On exam patient is awake/alert and in no distress. Abdomen is soft with some tenderness elicited to palpation across the lower abdomen, worse in the LLQ. This is patient's first episode of diverticulitis. C-scope performed 2-3 years ago was unremarkable per patient. Based on imaging, exam and findings we recommend treatment with a course of conservative measures. IV abx have been started in the form of zosyn. Would keep patient NPO with IVF today for bowel rest (may have some ice chips prn). Patient has been admitted to medicine service. No indication for surgical intervention at this time. We will continue to monitor closely. Supervising Physician Co-Signing Physician Notes pnt s&e, labs/imaging reviewed, agree w/ above. lower abd pain x [address] showed diverticulitis w/ small perforation. Tmax 37.9, current afvss. abd soft, ttp in lower abd and LLQ, no guarding. wbc 10.94, Ct personally reviewed and interpreted and agree w/ assessment of diverticulitis w/ microperf. no indication for surgery at this time. Recommend bowel rest, iv abx. May start clears this afternoon or tomorrow if doing well. Dr. Wiley following over the weekend. 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 Patient states he developed pain and feeling "crappy" about 24 hours ago that woke him up from his sleep. It felt like he needed to have a BM but did not have one. He ended up taking ibuprofen with relief of his symptoms during the daytime. Then he and his had friends over for dinner, which consisted of steak/potatoes/broccoli. Into the evening and nighttime around midnight he developed abdominal pain again that had worsened. Pain mostly located in the lower mid abdomen, stabbing in character, rating it an 8/10 in severity. He reports some slight nausea and low grade temps with this. Due to his symptoms he presented to the ER for further evaluation. He had some dizziness upon arrival to the ER which is now resolved. A CT a/p was obtained that revealed evidence of perforated diverticulitis with foci of air adjacent to the sigmoid colon, without evidence of abscess. Patient denies any CP/SOB or episodes of emesis. Last BM was yesterday around 9am. He underwent colonoscopy at [facility] 2-3 years ago and says it was unremarkable. Denies any history of diverticulitis in the past. No history of abdominal surgery. He is feeling a bit better now. Allergies Allergy/AdvReac Type Severity Reaction Status Date / Time No Known Allergies Allergy Verified 02/23/24 01:21 Home Medications Medication Instructions Recorded Confirmed Type atorvastatin 40 mg tablet 40 mg PO QAM 02/23/24 02/23/24 History losartan 50 mg tablet 50 mg PO QAM 02/23/24 02/23/24 History Patient History Medical History No chronic diseases present Surgical History No significant past surgical history Social History Smoking Status: Never smoker Preferred Language: Turkish Feels Safe at Home: Yes Review of Systems Constitutional: + fever (low grade) and + chills Respiratory: no dyspnea Cardiovascular: no chest pain Gastrointestinal: + abdominal pain (lower mid abd, supra-p ubic) and + nausea; no bloating, no vomiting and no change in bowel habits Genitourinary: no problem reported Physical Exam Physical Exam: awake/alert, no distress Constitutional: well developed and well nourished; no acute distress Respiratory: normal respiratory effort Gastrointestinal (Abdomen): Inspection/Auscultation: abdomen not distended Percussion/Palpation: + abdomen tender (ttp across lower abdomen, worse in the LLQ), + guarding (voluntary guarding in the LLQ) and abdomen soft; abdomen not rigid Results & Data Vital Signs (Past 12 Hours) Vital Signs Temp Pulse Pulse Resp BP BP Pulse Ox 02/23/24 06:00 97 H 13 133/70 94 02/23/24 05:00 99 H 19 107/79 94 02/23/24 05:00 108 H 02/23/24 03:00 119 H 19 118/72 93 02/23/24 01:20 114 H 19 152/78 H 93 02/23/24 00:22 113 H 02/23/24 00:03 112 H 19 91 02/22/24 23:52 112 H 17 140/93 92 02/22/24 23:33 100.2 F H 92 H 18 123/73 92 O2 Del Method O2 Flow Rate 02/23/24 06:00 Room Air 02/23/24 05:00 Room Air 02/23/24 05:00 02/23/24 03:00 Room Air 02/23/24 01:20 Room Air 02/23/24 00:22 02/23/24 00:03 Room Air 0 02/22/24 23:52 Room Air 02/22/24 23:33 Room Air Diagnostic Findings ADDENDUM ADDENDUM: 02/23/24 05:50 Verify Receipt Verified receipt with LULY Coleman. Given to ARIADNA Fraser on 02/22 05:50 (-04:00) Electronically signed by: Clayton Bethea MD Electronically signed by: Clayton Bethea MD 02/23/24 05:35 AM ADDENDUM END Exam(s): CT ABDOMEN + PELVIS With Contrast IV Amt: 93 ml opti 320 EXAM: CT Abdomen and Pelvis With Intravenous Contrast CLINICAL HISTORY: Reason for exam: low abd pain, fever. TECHNIQUE: Axial computed tomography images of the abdomen and pelvis with intravenous contrast. CTDI is 20.78 mGy and DLP is 1208.6 mGy-cm. Automated exposure control was utilized for the study. A dose lowering technique was utilized adhering to the principles of ALARA. CONTRAST: Patient received 93 ml opti 320 of IV contrast COMPARISON: No relevant prior studies available. FINDINGS: Lung bases: Unremarkable. No mass. No consolidation. ABDOMEN: Liver: Unremarkable. No mass. Gallbladder and bile ducts: Unremarkable. No calcified stones. No ductal dilation. Pancreas: Unremarkable. No mass. No ductal dilation. Spleen: Small splenules. Adrenals: Unremarkable. No mass. Kidneys and ureters: Unremarkable. No solid mass. No hydronephrosis. Stomach and bowel: Perforated diverticulitis with foci of air adjacent to the sigmoid colon (series 300 image 49). This is seen with diffuse annular thickening and submucosal enhancement of the distal sigmoid colon and rectum. No evidence of bowel obstruction. PELVIS: Appendix: Normal appendix. Bladder: Unremarkable. No mass. Reproductive: Prostatic calcifications. ABDOMEN and PELVIS: Intraperitoneal space: Mild dependent pelvic fluid which is likely reactive in nature. No free air. Bones/joints: Degenerative changes in the spine. No acute fracture. No dislocation. Soft tissues: Gynecomastia. Umbilical hernia containing fat. Vasculature: Unremarkable. No abdominal aortic aneurysm. Lymph nodes: Unremarkable. No enlarged lymph nodes. IMPRESSION: 1. Perforated diverticulitis with foci of air adjacent to the sigmoid colon (series 300 image 49). This is seen with diffuse annular thickening and submucosal enhancement of the distal sigmoid colon and rectum. 2. Mild dependent pelvic fluid which is likely reactive in nature. 3. No abscess detected. 4. No other acute findings. 5. Incidental findings as described. Communications: Verify Receipt Electronically signed by: Clayton Bethea MD 02/23/24 05:35 AM PG Care Time/CCT Total # of Minutes Spent Total Time Spent with Patient: Total time spent is greater than 50% in coordination of care (as documented) at patient's floor/unit and/or counseling patient: Coding Level of Care Code 77890 IN/OBS CONSULT LVL 3,45M Diagnoses Perforated diverticulum K57.80
[2024-02-23] MEDS: PIPERACILLIN/TAZOBACTAM 4.5 GM in DEXTROSE 5% MINI-B 100 ML IV SCH (13:28)
[2024-02-23] MEDS: ACETAMINOPHEN 1,000 MG/100 ML VIAL IV PRN (14:45)
--- NOTE | 2024-02-23 15:06 | Communication Note ---
Date of Service: February 23, 2024 Pt seen in the AM and later in the evening to discuss why he was still admitted. at bedside. Stable at this time. Abdomen was slightly tender in the AM in the lower quadrants. Continue NPO status, IV fluids and IV antibiotics. Appreciate General Surgery recs. For more information, please see History and Physical from same date of service.
[2024-02-23] MEDS: ENOXAPARIN INJ 40 MG/0.4 ML SYR SQ SCH (18:49)
--- OUTSIDE RECORDS SUMMARY | 2024-02-23 22:33 | External Medical Summary ---
Author Name Unknown Address Unknown Organization [id number]:[facility]ORY [facility] [place] - [address] [place] [id number] Laboratory Report Ordering Provider Test Date Status TEJAS PEREZ 12/07/2023 08:09:37 Final Observation Date Value Abnormality Reference (Units ) Status MYCODE SPECIMEN-SST 12/07/2023 08:09:37 Freezing of extracted DNA, whole blood and/or serum. Final Performing Location LAB[facility]ORY [facility] - [address] [place] [address]
--- OUTSIDE RECORDS SUMMARY | 2024-02-23 22:33 | External Medical Summary | Summary of Care ---
Author Name Unknown Organization [facility] [address] [facility] [address] Phone [phone] Care Team Providers Care Bottom Buffer Name Role Phone Lily Shahr Garo Primary Care Provider Encounter Details Date Type Department Care Team (Late st Contact Info) Description 11/27/2023 Orders Only PATIENT PORTAL DO NOT DELETE THIS DEPT USED BY [place] TORRES [id number] Allergies No known active allergiesdocumented as of this encounter (statuses as of 11/27/2023) Medications Medication Sig Dispensed Refills Start Date End Date Status Ascorbic Acid (VITAMIN C) 1000 MG Tablet Take 1 Tablet by mouth in the morning. 0 Active multivitamin (MVI) Tablet Take 1 Tablet by mouth in the morning. 0 Active omega-3 1000 MG CAPS Take 1 Cap by mouth daily. 0 Active Zinc 50 MG Oral Tablet Take 1 Tablet by mouth in the morning. 0 Active Atorvastatin Calcium 40 MG Oral Tablet (Lipitor)Indications: Dyslipidemia Take 1 Tablet by mouth in the morning. 90 Tablet 3 06/06/2023 Active Losartan Potassium 50 MG Oral Tablet (Cozaar)Indications:H TN, goal below 130/80 Take 1 Tablet by mouth in the morning. In the morning.. 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 ADVANCE DIRECTIVE INFORMATION 08/30/2007 11/26/2019 Overview: Yes, Patient instructed to provide copy of advance directive for provider to review and to be scanned into Electronic Medical Record. Elevated blood pressure, situational 05/16/2007 01/05/2016 PURE HYPERCHOLESTEROLEM 05/16/200710/06 Overview: Per Lipid Taxonomy. documented as of this encounter (statuses as of 11/27/2023) Immunizations Name Administration Dates Next Due COVID-19 mRNA, LNP-s, No Pre serve, 2-Dose Series (CENX) 09/28/2021,02/23/2021,02/02/2021 H1N1 2009 Influenza, IM 12/08/2009 HEP A - Hepatitis A (Adult > 18 yrs) 09/22/2010, 03/08/2010 Hepatitis B Vaccine, Recombi nant, Adjuvanted, 20 mcg/mL (Heplisav-B) 07/13/2023,06/06/2023 Seasonal Influenza, PF, 6 M & above, IM , (FluLaval or Fluzone) 07/13/2023,10/06/2018,08/17/2017 Seasonal Influenza, Quadriva lent, No Preserve, IM 11/10/2019,08/29/2015 Seasonal Influenza, Quadriva lent,with Preserve, 3 yr & above, IM 08/09/2020 Seasonal Influenza, Split, I IV3, With Preserve, Inj 08/25/2014,08/22/2013,12/20/2011,2010,12/08/2009,10/22/2008,11/16/2007 TDAP (age 10 and older)(Boostrix) 05/12/2020 TDAP (age 11 and older)(Adacel) 03/08/2010 Zoster Vaccine Recombinant (Shingrix) 10/13/2020 ,05/12/2020 documented as of this encounter Social History Tobacco Use Types Packs/Day Years Used Date Smoking Tobacco: Never Smokeless Tobacco: Never Alcohol Use Standard Drinks/Week Comments Yes 0 (1 standard drink = 0.6 oz pure alcohol) As of 2, the last noted alcohol intake was 10 ounces. PHQ-2 Answer Date Recorded PHQ Adult Total Score 0 11/29/2022 Sex and Gender Information Value Date Recorded Sex Assigned at Not on file Gender Identity Not on file Sexual Orientation Not on file Job Start Date Occupation Industry Not on file Not on file Not on file documented as of this encounter Plan of Treatment Upcoming Encounters Date Type Department Care Team (Late st Contact Info) Description 06/11/2024 9:40 AM EDT Office Visit Family Practice [facility] [address] [place] [address] Darrius Shah DO [address] [place] [address] Scheduled Procedures Name Priority Associated Diagnoses Date/Ti me COLONOSCOPY FLEXIBLE PROXIMA L DIAGNOSTIC Recall Screening for colon cancer Health Maintenance Due Date Last Done Comments Cologuard 2015 Fecal Occult Blood Test 2015 Sigmoidoscopy 2015 COVID-19 Vaccine ( season) 2023 09/28/2021, 02/23/2021, 02/02/2021 Depression Screening 11/29/2023 11/29/2022, 03/26/2018 (Declined) GFR 05/03/2024 05/03/2023, 0 05/2022, 04/19/2021, Additional history exists Albumin/Creatinine Ratio 05/03/2026 05/03/2023, 0 05/2022 Diabetes Screening 05/03/2026 05/03/2023, 0 05/03/2023, 11/12/2021, Additional history exists Lipid Panel 05/03/2028 05/03/2023, 05/2022, 04/19/2021, Additional history exists DTaP,Tdap,and Td Vaccines (3 - Td or Tdap) 05/12/2030 05/12/2020, 03/08/2010, 06/03/2003 Colonoscopy 06/25/2030 06/25/2020, 06/25/2020 Colorectal Cancer Screening 06/25/2030 Zoster Vaccines Completed 10/13/2020, 05/12/2020 Hepatitis B Completed 07/13/2023, 06/06/2023 Influenza Vaccine (FLU shot) Completed 07/13/2023, 08/01/2021, 08/09/2020, Additional history exists GARDASIL-HPV IMMUNIZATION SERIES Aged Out No longer eligible based on patient's age to complete this topic Hepatitis C Screening Discontinued MENINGOCOCCAL (MENACTRA/MENVEO) Aged Out No longer eligible based on patient's age to complete this topic Pneumococcal Vaccine: Pediatrics (0 to 5 Years) and At-Risk Patients (6 to 64 Years) Aged Out No longer eligible based on patient's age to complete this topic documented as of this encounter Medical Devices Not on filedocumented as of this encounter Care Teams Bottom Buffer Relationship Specialty Start Date End Date Darrius Shah DO [address] [place] [address] PCP - General Family Medicine 11/23/21 documented as of this encounter
--- OUTSIDE RECORDS SUMMARY | 2024-02-23 22:33 | External Medical Summary ---
Author Name Unknown Address Unknown Organization [id number]:[facility] [place] [address] - [address] [place] [address] Laboratory Report Ordering Provider Test Date Status CHARLEY OJEDA 12/07/2023 08:09:37 Final Observation Date Value Abnormality Reference (Units ) Status WBC, Total 12/07/2023 08:09:37 4.78 4.00-10.8 0 (K/uL) Final RBC 12/07/2023 08:09:37 5.14 4.50-5.25 (M/uL) Final Hemoglobin 12/07/2023 08:09:37 15.3 14.0-16.8 (g/dL) Final HCT 12/07/2023 08:09:37 45.5 40.0-48.4 (%) Final MCV 12/07/2023 08:09:37 88.5 82.0-99.5 (fL) Final MCH 12/07/2023 08:09:37 29.8 27.0-34.0 (pg) Final MCHC 12/07/2023 08:09:37 33.6 32.0-36.0 (g/dL) Final RDW 12/07/2023 08:09:37 13.1 11.5-15.5 (%) Final Platelets 12/07/2023 08:09:37 191 140-400 (K /uL) Final MPV 12/07/2023 08:09:37 10.2 6.6-11.1 ( fL) Final Performing Location LAB[facility]ORY [facility] [place] [place] [address]
--- OUTSIDE RECORDS SUMMARY | 2024-02-23 22:33 | External Medical Summary ---
Author Name Unknown Address Unknown Organization K0G:[facility] [place] [address] - [address] [place] [address] Laboratory Report Ordering Provider Test Date Status CHARLEY OJEDA 12/07/2023 08:09:37 Final Observation Date Value Abnormality Reference (Units ) Status SYNC LEUKOCYTES IN BLOOD BY AUTOMATED COUNT 12/07/2023 08:09:37 4.78 4.00-10.80 (K/uL) Final Segs 12/07/2023 08:09:37 62.8 40.0-75.0 (%) Final Lymphs % 12/07/2023 08:09:37 26.2 18.0-42.0 (%) Final Monos 12/07/2023 08:09:37 9.4 1.0-11.0 (%) Final Eosinophils 12/07/2023 08:09:37 0.8 0.0-6.0 (%) Final Basos 12/07/2023 08:09:37 0.8 0.0-2.0 (%) Final Absolute Segs 12/07/2023 08:09:37 3.00 1.80-7.70 (K/uL) Final Lymphs, absolute 12/07/2023 08:09:37 1.25 1.00-4.80 (K/ul) Final Monos, Abs 12/07/2023 08:09:37 0.45 0.00-1.10 (K/uL) Final Eos, Abs 12/07/2023 08:09:37 0.04 0.00-0.70 (K/uL) Final Basos, Abs 12/07/2023 08:09:37 0.04 0.00-0.20 (K/uL) Final Performing Location LAB[facility]ATORY [facility] [address] - [address] [place] [address]
--- OUTSIDE RECORDS SUMMARY | 2024-02-23 22:33 | External Medical Summary ---
Author Name Unknown Address Unknown Organization [id number] [place] [address] [place] [address] Laboratory Report Ordering Provider Test Date Status CHARLEY OJEDA 12/07/2023 08:11:31 Final Normal: <30 mg/g creatinine< br/>High: 30-300 mg/g creatinine
Very High: >300 mg/g creatinine
Nephrotic: >2200 mg/g creatinine Observation Date Value Abnormality Reference (Units ) Status Albumin, Urine 12/07/2023 08:11:31 <1.20 (mg/dL) Final Creatinine, Urine 12/07/2023 08:11:31 129 (mg/dL) Final Albumin/Creatinine [Mass Ratio] in Urine 12/07/2023 08:11:31 <9 <30 (mg/g Creat) Final Performing Location [facility] [place] [address] [place] [address]
--- OUTSIDE RECORDS SUMMARY | 2024-02-23 22:33 | External Medical Summary | Summary of Care ---
Author Name Unknown Organization [facility] Address [address] [place] [address] Phone [phone] Care Team Providers Care Crisis Counselor Name Role Phone Darrius Shah Primary Care Provider Reason for Visit * Reason Comments Outpatient Testing Encounter Details Date Type Department Care Team (Late st Contact Info) Description 12/07/2023 8:00 AM EST Laboratory Laboratory, [facility] [address] [place] [id number] [facility] [address] [place] [address] [place] Other*[id number]; Dyslipidemia; HTN, goal below 130/80 Allergies No known active allergiesdocumented as of this encounter (statuses as of 12/07/2023) Medications Medication Sig Dispensed Refills Start Date [...] as of this encounter (statuses as of 12/07/2023) Active Problems Problem Noted Date Diagnosed Date Lumbar herniated disc 04/19/2021 Family history of diabetes mellitus in sister 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 Dyslipidemia 11/26/2019 HTN, goal below 130/80 01/05/2016 documented as of this encounter (statuses as of 12/07/2023) Resolved Problems Problem Noted Date Diagnosed Date [...] as of this encounter (statuses as of 12/07/2023) Immunizations Name Administration Dates Next Due COVID-19 mRNA, LNP-s, No Pre serve, 2-Dose Series ([employer]) 09/28/2021,02/23/2021,02/02/2021 H1N1 2009 Influenza, IM 12/08/2009 HEP [...] = 0.6 oz pure alcohol) As of 2..2006, the last noted alcohol intake was 10 [...] 9:40 AM EDT Office Visit Family Practice [facility] [address] [facility] [place] [address] Darrius Shah DO [address] [facility] [place] [address] Pending Results Name Type Priority Associated Diagnoses Date /Time MYCODE SUBSEQUENT ADULT Lab Routine MyCode [employer] Other*[id number] 12/07/2023 8:09 AM EST LIPID PANEL WITH DIRECT LDL IF TG IS HIGH Lab Routine Dyslipidemia 12/07/2023 8:09 AM EST COMPREHENSIVE METABOLIC PANEL Lab Routine HTN, goal below 130/80 12/07/2023 8:09 AM EST MYCODE SST1 Lab Routine [employer]Code [employer] Other*[id number] 12/07/2023 8:09 AM EST MYCODE SST2 Lab Routine [employer] Other*[id number] 12/07/2023 8:09 AM EST Scheduled Procedures Name Priority Associated Diagnoses Date/Ti me COLONOSCOPY FLEXIBLE PROXIMA L DIAGNOSTIC Recall Screening for colon cancer Health Maintenance Due Date Last Done Comments Cologuard 2015 Fecal Occult Blood Test 2015 Sigmoidoscopy 2015 COVID-19 Vaccine ( season) 2023 09/28/2021, 02/23/2021, 02/02/2021 Depression Screening 11/29/2023 11/29/2022, 03/26/2018 (Declined) GFR 05/03/2024 05/03/2023, 05/2022, 04/19/2021, Additional history exists Albumin/Creatinine Ratio 05/03/2026 05/03/2023, 0 05/2022 Diabetes Screening 05/03/2026 05/03/2023, 0 05/03/2023, 11/12/2021, Additional history exists Lipid Panel 05/03/2028 05/03/2023, 0 05/2022, 04/19/2021, Additional history exists DTaP,Tdap,and Td [...] Not on filedocumented as of this encounter Visit Diagnoses Diagnosis MyCode [employer] Other*[id number] Dyslipidemia Other and unspecified hyperlipidemia HTN, goal below 130/80 Unspecified essential hypertension documented in this encounter Care Teams Crisis Counselor Relationship Specialty Start Date End Date Darrius Shah DO [address] [place] [address] PCP - General Family Medicine 11/23/21 documented as of this encounter
--- OUTSIDE RECORDS SUMMARY | 2024-02-23 22:33 | External Medical Summary ---
Author Name Unknown Address Unknown Organization K01:[facility] [place] - [address] [place] [address] Laboratory Report Ordering Provider Test Date Status TEJAS PEREZ 12/07/2023 08:09:37 Final Observation Date Value Abnormality Reference (Units ) Status MYCODE SPECIMEN-SST 12/07/2023 08:09:37 Freezing of extracted DNA, whole blood and/or serum. Final Performing Location LABORATORY C - [address] [place] [address]
--- OUTSIDE RECORDS SUMMARY | 2024-02-23 22:33 | External Medical Summary ---
Author Name Unknown Address Unknown Organization K0G:[facility] [address] - [address] [place] [address] Laboratory Report Ordering Provider Test Date Status TYLOR JANSEN 12/07/2023 08:09:37 Final Observation Date Value Abnormality Reference (Units ) Status BUN 12/07/2023 08:09:37 19 6-20 (mg/dL) Final Creatinine 12/07/2023 08:09:37 1.2 0.6-1.2 (mg/dL) Final Glomerular filtration rate/1.73 sq M.predicted [Volume Rate/Area] in Serum, Plasma or Blood by Creatinine-based formula (CKD-EPI) 12/07/2023 08:09:37 73 >=60 (mL/min) Final eGFR is calculated based on the CKD-EPI 2020 equation SODIUM 12/07/2023 08:09:37 144 135-146 (m mol/L) Final Potassium 12/07/2023 08:09:37 4.7 3.5-5.1 (m mol/L) Final Cl 12/07/2023 08:09:37 107 98-107 (mm ol/L) Final CO2 12/07/2023 08:09:37 29 22-32 (mmo l/L) Final Anion gap 12/07/2023 08:09:37 8 7-15 (mmol /L) Final Glucose 12/07/2023 08:09:37 94 70-120 (mg /dL) Final Albumin 12/07/2023 08:09:37 4.6 3.8-5.0 (g /dL) Final AST (Aspartate aminotransferase) 12/07/2023 08:09:37 24 10-50 (U/L) Final Alk Phos 12/07/2023 08:09:37 61 35-130 (U/ L) Final Bilirubin, Total 12/07/2023 08:09:37 0.7 <=1 .2 (mg/dL) Final Calcium 12/07/2023 08:09:37 9.3 8.4-10.2 ( mg/dL) Final Protein 12/07/2023 08:09:37 6.5 6.0-8.3 (g /dL) Final ALT (Alanine aminotransferase) 12/07/2023 08:09:37 27 10-50 (U/L) Final Performing Location LABORATORY [place] [address] - [address] [facility] [address]
--- OUTSIDE RECORDS SUMMARY | 2024-02-23 22:33 | External Medical Summary ---
Author Name Unknown Address Unknown Organization K01:[facility] [place] [facility] [address] [facility] [address] Laboratory Report Ordering Provider Test Date Status TYLOR JANSEN 12/07/2023 08:09:37 Final Observation Date Value Abnormality Reference (Units ) Status Triglyceride 12/07/2023 08:09:37 106 <=174 ( mg/dL) Final Triglyceride Reference Range s (mg/dL):
<150 Acceptable
150-174 Borderline high
175-499 High
>=500 Very high Cholesterol 12/07/2023 08:09:37 153 <200 (mg /dL) Final Total Cholesterol Reference Ranges (mg/dL):
<200 Desirable
200-239 Borderline high
>=240 High HDL 12/07/2023 08:09:37 57 >39 (mg/dL ) Final HDL Cholesterol Reference Ra nges (mg/dL):
>=60 High (Desirable)
<50 Low (Undesirable) For Females
<40 Low (Undesirable) For Males NON-HDL CHOLESTEROL 12/07/2023 08:09:37 96 <=159 (mg/dL) Final Non-HDL Cholesterol Referenc e Range (mg/dL):
<100 Target level for high risk ASCVD patient
<130 Optimal for general population
130-159 Near optimal for general population
160-189 Borderline High
190-219 High
>=220 Very High LDL, (calculated) 12/07/2023 08:09:37 75 <= 129 (mg/dL) Final LDL Cholesterol Reference Ra nges (mg/dL):
<70 Target level for high risk ASCVD patient
<100 Optimal for general population
100-129 Near optimal for general population
130-159 Borderline high
160-189 High
>=190 Very high Performing Location LABORATORY [facility] [place] - [address] [facility] [address]
--- OUTSIDE RECORDS SUMMARY | 2024-02-23 22:34 | External Medical Summary | Summary of Care ---
Author Name Unknown Organization [facility] Address [address] [place] [address] Phone [phone] Care Team Providers Care Supervisor Sandblaster Name Role Phone Darrius Shah DO Primary Care Provider Reason for Visit * Reason Comments Return Visit BP check in Encounter Details Date Type Department Care Team (Late st Contact Info) Description 11/23/2023 8:20 AM EST Telemedicine Family Practice [facility] [address] [place] [address] Waleska Cuevas CRNP [address] [place] [address] HTN, goal below 130/80*; Dyslipidemia Allergies No known active allergiesdocumented as of this encounter (statuses as of 11/23/2023) Medications Medication Sig Dispensed Refills Start Date [...] Active Atorvastatin Calcium 40 MG Oral Tablet (Lipitor)Indicati ons:Dyslipidemia Take 1 Tablet by mouth in the morning. 90 Tablet 3 06/06/2023 Active Losartan Potassium 50 MG Oral Tablet (Cozaar)Indicatio ns:HTN, goal below 130/80 Take 1 Tablet by mouth in the morning. In the morning.. 30 Tablet 11 11/23/2023 Active Losartan Potassium 25 MG Oral Tablet (Cozaar) TAKE 1 TABLET BY MOUTH EVERY MORNING 30 Tablet 11 07/03/2023 11/23/2023 Discontinued (Refill) Losartan Potassium 50 MG Oral Tablet (Cozaar)Indicatio ns:HTN, goal below 130/80 Take 0.5 Tablets by mouth in the morning. In the morning.. 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 History of Present Illness Sánchez Castellano is a 53 year old male that presents for Return Visit (BP check in) HPI Here via video to discuss elevated BP readings at home. He has been taking losartan. Average bp reading at home 135/95. Denies PEREZ, vision changes, chest pain. Tolerating increased statin dose Outpatient Medications Marked as Taking for the 11/23/23 encounter (Telemedicine) with Waleska Cuevas CRNP Medication Sig Losartan Potassium 50 MG Oral Tablet (Cozaar) Take 0.5 Tablets by mouth in the morning. In the morning.. Atorvastatin Calcium 40 MG Oral Tablet (Lipitor) Take 1 Tablet by mouth in the morning. Ascorbic Acid (VITAMIN C) 1000 MG Tablet Take 1 Tablet by mouth in the morning. Physical Exam There were no vitals filed for this visit. Physical Exam Constitutional: General: He is not in acute distress. Neurological: Mental Status: He is alert and oriented to person, place, and time. Psychiatric: Behavior: Behavior normal. Thought Content: Thought content normal. Assessment and Plan HTN, goal below 130/80 Nurse visit for recheck 2 weeks - COMPREHENSIVE METABOLIC PANEL; Future - Losartan Potassium 50 MG Oral Tablet (Cozaar); Take 1 Tablet by mouth in the morning. In the morning.. Dyslipidemia - LIPID PANEL WITH DIRECT LDL IF TG IS HIGH; Future Wrap-Up Follow-up: Return in about 2 weeks (around 12/07/2023). | Check-out note: 2 week recheck for nurse visit and BP check Time: I spent a total of 20-29 minutes (exact time 20 mins) on the date of service in preparation, delivery, and documentation of the care provided to Sánchez Castellano excluding any time spent in the performance of separately billed services. Telemedicine: Patient location: HOME. I was in a hospital or clinic location. After connecting through televideo, patient was verified with two unique identifiers. Patient (or authorized legal novelties sales representative) wasthen informed that this was a Telemedicine visit and being conducted confidentially over secure lines. Methods to assure confidentiality were taken. Patient acknowledged consent and understanding of privacy and security of the Telemedicine visit. The patient agreed to participate. documented in this encounter Nursing Notes * Samaria Vincent LPN - 11/23/2023 8:25 AM EST The patient has been properly identified by confirmation of name and date of . Chief Complaint Patient presents with Return Visit BP check in Higher when monitoring at home, but dose fluctuate. Pt states he dose use a wrist cuff, averages 130-135-90s. documented in this encounter Plan of Treatment Upcoming Encounters Date Type Department Care Team (Late st Contact Info) Description 06/11/2024 9:40 AM EDT Office Visit Family Practice [facility] [address] [place] [address] Darrius Shah, [address] [place] [address] Scheduled Orders Name Type Priority Associated Diagnoses Orde r Schedule LIPID PANEL WITH DIRECT LDL IF TG IS HIGH Lab Routine Dyslipidemia Expected: 11/23/2023, Expires: 11/23/2024 COMPREHENSIVE METABOLIC PANEL Lab Routine HTN, goal below 130/80 Expected: 11/23/2023 (Approximate), Expires: 11/22/2024 Scheduled Procedures Name Priority Associated Diagnoses Date/Ti [...] as of this encounter Visit Diagnoses Diagnosis HTN, goal below 130/80- Primary Unspecified essential hypertension Dyslipidemia Other and unspecified hyperlipidemia documented in this encounter Care Teams Supervisor Sandblaster Relationship Specialty Start Date End Date Darrius Shah DO [address] [place] [address] PCP - General Family Medicine 11/23/21 documented as of this encounter"
--- NOTE | 2024-02-24 05:58 | Electrocardiogram Report ---
Test Reason : Blood Pressure : / mmHG Vent. Rate : 108 BPM Atrial Rate : 108 BPM P-R Int : 162 ms QRS Dur : 088 ms QT Int : 314 ms P-R-T Axes : 067 056 026 degrees QTc Int : 420 ms Sinus tachycardia Otherwise normal ECG No previous ECGs available Confirmed by Shukri Larsen ([id number]) on 02/24/2024 5:58:01 AM Referred By: REFERRED SELF Confirmed By:Juan Carlos Larsen
[2024-02-24 06:48] LABS: Basophils # (auto) 0.05 K/uL (0.00-0.20); Basophils % (auto) 0.6 %; Eosinophils # (auto) 0.06 K/uL (0.00-0.50); Eosinophils % (auto) 0.8 %; Hematocrit (blood only) 36.4 % (42.0-52.0); Hemoglobin 12.4 g/dl (14.0-18.0); Immature Granulocytes # (auto) 0.02 K/uL (0.01-0.20); Immature Granulocytes % (auto) 0.3 %; Lymphocytes % (auto) 11.6 %; Mean Corpuscular Hemoglobin 29.7 pg (25.0-34.0); Mean Corpuscular Hgb Conc 34.1 g/dL (32.0-36.0); Mean Corpuscular Volume 87.3 fL (80.0-100.0); Mean Platelet Volume 10.7 fL (9.4-12.4); Monocytes # (auto) 0.61 K/uL (0.11-0.59); Monocytes % (auto) 7.9 %; Neutrophils # (auto) 6.09 K/uL (1.40-6.50); Neutrophils % (auto) 78.8 %; Platelet Count 154 K/uL (130-400); RDW Standard Deviation 41.4 fL (36.4-46.3); Red Blood Count 4.17 M/uL (4.70-6.10); White Blood Count 7.73 K/ul (4.8-10.8)
[2024-02-24 07:04] LABS: Albumin Globulin Ratio 1.5 (0.9-2); Albumin Level 3.4 gm/dl (3.4-5.0); Bilirubin,Total 0.9 mg/dl (0.2-1.0); Calcium 8.6 mg/dl (8.6-10.3); Creatinine Clr Calc Pharmacy 83.2 ml/min; Est GFR (African American) 80.6 ml/min; Est GFR (Non-African American) 69.5 ml/min; Globulin 2.2 gm/dl (2.5-4.0); Phosphorus 1.8 mg/dl (2.5-4.9); Potassium 4.2 mmol/L (3.5-5.1); Total Protein 5.6 gm/dl (6.0-8.3)
[2024-02-24] MEDS ORDERED: POTASSIUM PHOS 3 MMOL/1 ML INFUSION IV STA (08:09)
[2024-02-24] MEDS: POTASSIUM PHOSPHATE 21 MMOL in SODIUM CHLORIDE 0.9% 500 ML IV ONE (08:56)
--- NOTE | 2024-02-24 09:34 | Surgery Progress Note ---
Date of Service February 24, 2024 Assessment & Plan (1) Perforated diverticulum: Plan: Patient admitted with perforated sigmoid diverticulitis without abscess WBC 7.7. Vitals are stable and patient is afebrile Abdominal pain and symptoms are improving Will advance diet to clear liquids today Continue IV abx while in house, will need transitioned to PO upon dispo to complete course at home May consider further diet advancement tomorrow and possible dispo pending progress No indications for surgical intervention required at this time Pt seen/examined with Dr. Wiley Admission and Anticipated Discharge Date Admission Date: February 23, 2024 Supervising Physician Co-Signing Physician Notes As per Kristin Valdovinos physician assistant purchasing manager Patient is resting comfortable minimal abdominal discomfort positive flatus The abdomen is benign no appreciable guarding Will start him on some clear liquids Discussed with him the need for another 24 to 48 hours of IV antibiotics and likely be discharged another week or so p.o. antibiotics Has had colonoscopy within the last 5 years Subjective Patient reports feeling much better overall. No pain at rest, some mild pain returns with movement and palpation of abdomen. Denies nausea/vomiting. Passing gas, no BM yet. Physical Exam Physical Exam: awake/alert, no distress Gastrointestinal (Abdomen): Inspection/Auscultation: abdomen not distended Percussion/Palpation: + abdomen tender (mild discomfort in lower abd/llq) and abdomen soft Results & Data Vital Signs (Past 12 Hours) Vital Signs Temp Pulse Pulse Resp BP BP Pulse Ox 02/24/24 08:13 98.8 F 75 16 131/85 93 02/24/24 06:59 80 02/24/24 03:49 98.4 F 76 18 129/86 96 02/23/24 23:23 98.4 F 88 16 121/71 93 02/23/24 21:56 73 02/23/24 21:34 74 O2 Del Method 02/24/24 08:13 Room Air 02/24/24 06:59 02/24/24 03:49 Room Air 02/23/24 23:23 Room Air 02/23/24 21:56 02/23/24 21:34 PG Care Time/CCT Total # of Minutes Spent Total Time Spent with Patient: Total time spent is greater than 50% in coordination of care (as documented) at patient's floor/unit and/or counseling patient: Coding Level of Care Code 68871 SUB INP/OBS CARE 11/30MIN Diagnoses Perforated diverticulum K57.80
--- NOTE | 2024-02-24 13:00 | Hospitalist Progress Note ---
Date of Service February 24, 2024 Assessment & Plan (1) Sepsis: Plan Pt is a 54yoM with PMHx significant for hypertension, hyperlipidemia presenting with 1 day of lower abdominal pain in the setting of perforated diverticulitis. Sepsis Perforated Diverticulitis Pt tachycardic with leukocytosis, infectious source perforated diverticulitis CT abd/pelvis noting perforated diverticulitis lactate normal Blood Cx x 1 set NGTD On Zosyn, continue General Surgery consulted, appreciate recs -nonsurgical approach at this time -advancing diet -continue Zosyn IV fluids discontinued in setting of oral intake at this time, HTN IV pain control, antiemetics Continue to monitor Outpatient GI consult for diverticulitis Anemia Noted hgb drop from 14.2 to 12.4 Possibly dilutional Continue to monitor Consider further workup if persistent Prediabetes Glucose levels elevated Hgba1c of 5.7 Diet and exercise PCP followup Hypophosphatemia Phosphorus of 1.8 Replete as needed Sinus tachycardia Noted on EKG Likely in setting of acute illness Echo ordered and pending Hypertension Continue home antihypertensive Hyperlipidemia statin Rx, continue Diet: clears, advancing per Gen Surg DVT prophylaxis: Lovenox subcu Dispo: Home once medically stable Admission and Anticipated Discharge Date Admission Date: February 23, 2024 Subjective Pt seen with at bedside. Had eaten clears, tolerated well. No abd pain, or BM yet. 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 Review of Systems Review of Systems: All systems reviewed & are unremarkable except as noted in Subjective Physical Exam Physical Exam: General: Alert, oriented. No acute distress Skin: No noted rashes or bruises Psych: Appropriate mood and affect Neuro: No gross deficits HEENT: NC/AT CV: RRR Resp: Breath sounds clear bilaterally, no increased effort of breathing. Abdomen: Soft, nontender, nondistended. No guarding. Extremities: No edema in lower extremities bilaterally. Results & Data Results & Data Vital Signs (Past 12 Hours) Vital Signs Temp Pulse Pulse Resp BP BP Pulse Ox 02/24/24 11:33 37.1 C 64 16 134/83 96 02/24/24 08:13 37.1 C 75 16 131/85 93 02/24/24 06:59 80 02/24/24 03:49 36.9 C 76 18 129/86 96 O2 Del Method 02/24/24 11:33 Room Air 02/24/24 08:13 Room Air 02/24/24 06:59 02/24/24 03:49 Room Air Diagnostic Findings Abdomen/Pelvis CT 02/22/24 23:59 CR Exam(s): CT ABDOMEN + PELVIS With Contrast IV Amt: 93 ml opti 320 EXAM: CT Abdomen and Pelvis With Intravenous Contrast CLINICAL HISTORY: Reason for exam: low abd pain, fever. TECHNIQUE: Axial computed tomography images of the abdomen and pelvis with intravenous contrast. CTDI is 20.78 mGy and DLP is 1208.6 mGy-cm. Automated exposure control was utilized for the study. A dose lowering technique was utilized adhering to the principles of ALARA. CONTRAST: Patient received 93 ml opti 320 of IV contrast COMPARISON: No relevant prior studies available. FINDINGS: Lung bases: Unremarkable. No mass. No consolidation. ABDOMEN: Liver: Unremarkable. No mass. Gallbladder and bile ducts: Unremarkable. No calcified stones. No ductal dilation. Pancreas: Unremarkable. No mass. No ductal dilation. Spleen: Small splenules. Adrenals: Unremarkable. No mass. Kidneys and ureters: Unremarkable. No solid mass. No hydronephrosis. Stomach and bowel: Perforated diverticulitis with foci of air adjacent to the sigmoid colon (series 300 image 49). This is seen with diffuse annular thickening and submucosal enhancement of the distal sigmoid colon and rectum. No evidence of bowel obstruction. PELVIS: Appendix: Normal appendix. Bladder: Unremarkable. No mass. Reproductive: Prostatic calcifications. ABDOMEN and PELVIS: Intraperitoneal space: Mild dependent pelvic fluid which is likely reactive in nature. No free air. Bones/joints: Degenerative changes in the spine. No acute fracture. No dislocation. Soft tissues: Gynecomastia. Umbilical hernia containing fat. Vasculature: Unremarkable. No abdominal aortic aneurysm. Lymph nodes: Unremarkable. No enlarged lymph nodes. IMPRESSION: 1. Perforated diverticulitis with foci of air adjacent to the sigmoid colon (series 300 image 49). This is seen with diffuse annular thickening and submucosal enhancement of the distal sigmoid colon and rectum. 2. Mild dependent pelvic fluid which is likely reactive in nature. 3. No abscess detected. 4. No other acute findings. 5. Incidental findings as described. Communications: Verify Receipt Electronically signed by: Clayton Bethea MD 02/23/24 05:35 AM
[2024-02-24] MEDS ORDERED: MELATONIN 3 MG TAB PO PRN (19:32)
[2024-02-24] MEDS ORDERED: ACETAMINOPHEN 325 MG TAB PO PRN (19:32)
[2024-02-24] MEDS ORDERED: oxyCODONE HCL IR 5 MG TAB (IMMEDIATE RELEASE) PO PRN (19:32)
[2024-02-24] MEDS: LOSARTAN POTASSIUM 50 MG TAB PO SCH (20:27)
[2024-02-24] MEDS: SODIUM CHLORIDE 0.9% 1,000 ML IV ONE (20:28)
[2024-02-24] MEDS: diphenhydrAMINE Capsule 25 MG CAP PO PRN (21:26)
[2024-02-25 06:46] LABS: Basophils # (auto) 0.04 K/uL (0.00-0.20); Basophils % (auto) 0.7 %; Eosinophils # (auto) 0.05 K/uL (0.00-0.50); Eosinophils % (auto) 0.9 %; Hematocrit (blood only) 36.9 % (42.0-52.0); Hemoglobin 12.7 g/dl (14.0-18.0); Immature Granulocytes # (auto) 0.02 K/uL (0.01-0.20); Immature Granulocytes % (auto) 0.3 %; Lymphocytes # (auto) 0.79 K/uL (1.20-3.40); Lymphocytes % (auto) 13.6 %; Mean Corpuscular Hemoglobin 29.5 pg (25.0-34.0); Mean Corpuscular Hgb Conc 34.4 g/dL (32.0-36.0); Mean Corpuscular Volume 85.8 fL (80.0-100.0); Mean Platelet Volume 10.4 fL (9.4-12.4); Monocytes # (auto) 0.58 K/uL (0.11-0.59); Monocytes % (auto) 9.9 %; Neutrophils # (auto) 4.35 K/uL (1.40-6.50); Neutrophils % (auto) 74.6 %; Platelet Count 172 K/uL (130-400); RDW Coefficient of Variation 12.6 % (11.5-14.5); RDW Standard Deviation 39.3 fL (36.4-46.3); White Blood Count 5.83 K/ul (4.8-10.8)
[2024-02-25 07:12] LABS: Albumin Globulin Ratio 1.5 (0.9-2); Albumin Level 3.5 gm/dl (3.4-5.0); BUN Creatinine Ratio 5.8 (10-20); Bilirubin,Total 0.8 mg/dl (0.2-1.0); Calcium 8.9 mg/dl (8.6-10.3); Creatinine Clr Calc Pharmacy 81.8 ml/min; Est GFR (Non-African American) 68.1 ml/min; Globulin 2.3 gm/dl (2.5-4.0); Magnesium 1.8 mg/dl (1.7-2.4); Phosphorus 2.3 mg/dl (2.5-4.9); Potassium 3.9 mmol/L (3.5-5.1); Total Protein 5.8 gm/dl (6.0-8.3)
[2024-02-25] MEDS: ATORVASTATIN 40 MG TAB PO SCH (07:46)
[2024-02-25] MEDS ORDERED: POTASSIUM PHOS 3 MMOL/1 ML INFUSION IV STA (08:49)
[2024-02-25] MEDS: POT PHOSPHATE MONOBASIC W/ SOD TAB PO SCH (09:23)
[2024-02-25] MEDS: POTASSIUM PHOSPHATE 15 MMOL in SODIUM CHLORIDE 0.9% 250 ML IV ONE (09:23)
--- NOTE | 2024-02-25 12:16 | Hospitalist Progress Note ---
Date of Service February 25, 2024 Assessment & Plan (1) Sepsis: Plan Pt is a 54yoM with PMHx significant for hypertension, hyperlipidemia presenting with 1 day of lower abdominal pain in the setting of perforated diverticulitis. Sepsis Perforated Diverticulitis Pt tachycardic with leukocytosis, infectious source perforated diverticulitis CT abd/pelvis noting perforated diverticulitis lactate normal Blood Cx x 1 set NGTD On Zosyn, continue General Surgery consulted, appreciate recs -nonsurgical approach at this time -advancing diet -continue Zosyn IV fluids discontinued in setting of oral intake at this time, HTN IV pain control, antiemetics Continue to monitor Outpatient GI consult for diverticulitis Anemia Noted hgb drop from 14.2 to 12.4 Possibly dilutional Continue to monitor Consider further workup if persistent Prediabetes Glucose levels elevated Hgba1c of 5.7 Diet and exercise PCP followup Hypophosphatemia Phosphorus of 1.8 Replete as needed Sinus tachycardia Noted on EKG Likely in setting of acute illness Echo ordered and pending Hypertension Continue home antihypertensive Hyperlipidemia statin Rx, continue Diet: clears, advancing per Gen Surg DVT prophylaxis: Lovenox subcu Dispo: Home once medically stable Admission and Anticipated Discharge Date Admission Date: February 23, 2024 Physical Exam Physical Exam: General: Alert, oriented. No acute distress Skin: No noted rashes or bruises Psych: Appropriate mood and affect Neuro: No gross deficits HEENT: NC/AT CV: RRR Resp: Breath sounds clear bilaterally, no increased effort of breathing. Abdomen: Soft, nontender, nondistended. No guarding. Extremities: No edema in lower extremities bilaterally. Results & Data Results & Data Vital Signs (Past 12 Hours) Vital Signs Temp Pulse Pulse Resp BP Pulse Ox Pulse Ox 02/25/24 12:14 37.3 C 61 16 134/82 96 02/25/24 08:41 97 02/25/24 07:56 37.3 C 60 16 153/83 H 97 02/25/24 07:22 78 02/25/24 03:32 38 C H 82 18 145/87 H 93 O2 Del Method O2 Del Method 02/25/24 12:14 Room Air 02/25/24 08:41 Room Air 02/25/24 07:56 Room Air 02/25/24 07:22 02/25/24 03:32 Room Air
--- NOTE | 2024-02-25 12:57 | Surgery Progress Note ---
Date of Service February 25, 2024 Assessment & Plan (1) Perforated diverticulum: Plan: Patient admitted with perforated sigmoid diverticulitis without abscess Tolerating clears, may advance to low fiber for the next few weeks WBC wnl Pt ok for d/c from surgical standpoint , will need 2 weeks PO antibiotics Pt seen/examined with Dr. Wiley Admission and Anticipated Discharge Date Admission Date: February 23, 2024 Subjective pt reports feeling good No pain , no n/v + Bms Review of Systems Respiratory: no dyspnea Cardiovascular: no chest pain Gastrointestinal: + diarrhea/loose stools; no abdominal pa in, no nausea and no vomiting Genitourinary: no problem reported Physical Exam Physical Exam: alert oriented Constitutional: well developed, cooperative and comfortable; no acute distress Respiratory: normal respiratory effort and able to speak in complete sentences; no respiratory distress Cardiovascular: Rate/Rhythm: regular rate Gastrointestinal (Abdomen): Inspection/Auscultation: abdomen not distended Percussion/Palpation: abdomen nontender Results & Data Vital Signs (Past 12 Hours) Vital Signs Temp Pulse Pulse Resp BP Pulse Ox Pulse Ox 02/25/24 12:14 99.1 F 61 16 134/82 96 02/25/24 08:41 97 02/25/24 07:56 99.1 F 60 16 153/83 H 97 02/25/24 07:22 78 02/25/24 03:32 100.4 F H 82 18 145/87 H 93 O2 Del Method O2 Del Method 02/25/24 12:14 Room Air 02/25/24 08:41 Room Air 02/25/24 07:56 Room Air 02/25/24 07:22 02/25/24 03:32 Room Air PG Care Time/CCT Total # of Minutes Spent Total Time Spent with Patient: Total time spent is greater than 50% in coordination of care (as documented) at patient's floor/unit and/or counseling patient: Coding Level of Care Code 86419 SUB INP/OBS CARE 11/30MIN Diagnoses Perforated diverticulum K57.80
--- NOTE | 2024-02-25 14:41 | Discharge Summary ---
Discharge Summary Date of Service February 25, 2024 Notes For Next Care Provider Please ensure followup with General Surgery for perforated diverticulitis. Per pt had a colonoscopy within the last 5 years. Please ensure gastroenterology followup. Medication Changes From Visit ciprofloxacin 500mg BID x 14 days Flagyl 500mg TID x 14 days Probiotic Admission HPI Per Admitting Provider History obtained from patient and records. Medical history significant for hypertension, hyperlipidemia. Patient woke up yesterday morning with lower achy abdominal pain which persistent and worsened overnight. Some nausea, emesis, fever or chills. No previous episodes. No constipation or diarrhea symptoms. Patient denies chest pain, SOB. Zosyn administered at the ER for sepsis. 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 Admission Exam Per Admitting Provider GENERAL: Comfortable, pleasant, no respiratory distress SKIN: Normal color, warm HEENT: Alopecia, [place] palpebral conjunctivae, no ptosis, dry buccal mucosa NECK : Supple, no tenderness CHEST : CTA, no tenderness HEART : RRR, no obvious murmurs ABDOMEN: Some distention, minimal hypogastric tenderness EXTREMITIES : No LE swelling/tenderness, no other conspicuous deformities noted NEUROLOGIC : Coherent, no facial asymmetry, no other gross focality Principal Dx & Hospital Course #1 = Principal Diagnosis (1) Sepsis: (2) Perforated diverticulum: Plan Pt is a 54yoM with PMHx significant for hypertension, hyperlipidemia presenting with 1 day of lower abdominal pain in the setting of perforated diverticulitis. Sepsis Perforated Diverticulitis Pt tachycardic with leukocytosis, infectious source perforated diverticulitis CT abd/pelvis noting perforated diverticulitis lactate normal Blood Cx x 1 set NGTD Treated with IV Zosyn, transitioned to oral ciprofloxacin and Flagyl for 14 days on discharge per General Surgery recommendations. General Surgery consulted, recommended the following: -nonsurgical approach at this time -advancing diet to low fiber for 3 weeks per tiger text with General Surgery -Transition Zosyn to oral antibiotics for 2 weeks after discharge- pt transitioned to oral ciprofloxacin and Flagyl for 14 days on discharge per General Surgery recommendations. IV fluids discontinued in setting of oral intake at this time, HTN IV pain control, antiemetics Outpatient GI follow up for diverticulitis/colonoscopy Close PCP follow up and General surgery follow up after discharge Anemia Noted hgb drop from ~ 14 on admission to ~ 12 on discharge Possibly dilutional PCP follow up for further workup if persistent Prediabetes Glucose levels elevated Hgba1c of 5.7, consistent with diagnosis of prediabetes Encourage dietary and exercise changes PCP followup Hypophosphatemia Phosphorus of 1.8 Repleted as needed Sinus tachycardia Noted on EKG Likely in setting of acute illness Echo ordered EF of 55-60% otherwise unremarkable Currently resolved Hypertension Continue home antihypertensive Hyperlipidemia statin Rx, continue Discharge Exam GENERAL: Comfortable, pleasant, no respiratory distress SKIN: Normal color, warm HEENT: Alopecia, [place] palpebral conjunctivae, no ptosis, dry buccal mucosa NECK : Supple, no tenderness CHEST : CTA, no tenderness HEART : RRR, no obvious murmurs ABDOMEN: Some distention, minimal hypogastric tenderness EXTREMITIES : No LE swelling/tenderness, no other conspicuous deformities noted NEUROLOGIC : Coherent, no facial asymmetry, no other gross focality Updated Medication List Medication Instructions Recorded Confirmed Type atorvastatin 40 mg tablet 40 mg PO QAM 02/23/24 02/23/24 History losartan 50 mg tablet 50 mg PO QAM 02/23/24 02/23/24 History Saccharomyces boulardii 250 mg 250 mg PO DAILY #14 caps 02/25/24 Rx capsule (Daily Probiotic (S. boulardii)) ciprofloxacin HCl 500 mg tablet 500 mg PO BID #28 tabs 02/25/24 Rx metronidazole 500 mg tablet 500 mg PO Q8H #42 tabs 02/25/24 Rx Hospital Stay Data Consultations 02/23/24 06:18 Consult General Surgery Stat ED Decision to Admit Stat Diagnostic Imagining Performed 02/22/24 23:59 CT abd pelvis IV con only Stat Abdomen/Pelvis CT 02/22/24 23:59 CR Exam(s): CT ABDOMEN + PELVIS With Contrast IV Amt: 93 ml opti 320 EXAM: CT Abdomen and Pelvis With Intravenous Contrast CLINICAL HISTORY: Reason for exam: low abd pain, fever. TECHNIQUE: Axial computed tomography images of the abdomen and pelvis with intravenous contrast. CTDI is 20.78 mGy and DLP is 1208.6 mGy-cm. Automated exposure control was utilized for the study. A dose lowering technique was utilized adhering to the principles of ALARA. CONTRAST: Patient received 93 ml opti 320 of IV contrast COMPARISON: No relevant prior studies available. FINDINGS: Lung bases: Unremarkable. No mass. No consolidation. ABDOMEN: Liver: Unremarkable. No mass. Gallbladder and bile ducts: Unremarkable. No calcified stones. No ductal dilation. Pancreas: Unremarkable. No mass. No ductal dilation. Spleen: Small splenules. Adrenals: Unremarkable. No mass. Kidneys and ureters: Unremarkable. No solid mass. No hydronephrosis. Stomach and bowel: Perforated diverticulitis with foci of air adjacent to the sigmoid colon (series 300 image 49). This is seen with diffuse annular thickening and submucosal enhancement of the distal sigmoid colon and rectum. No evidence of bowel obstruction. PELVIS: Appendix: Normal appendix. Bladder: Unremarkable. No mass. Reproductive: Prostatic calcifications. ABDOMEN and PELVIS: Intraperitoneal space: Mild dependent pelvic fluid which is likely reactive in nature. No free air. Bones/joints: Degenerative changes in the spine. No acute fracture. No dislocation. Soft tissues: Gynecomastia. Umbilical hernia containing fat. Vasculature: Unremarkable. No abdominal aortic aneurysm. Lymph nodes: Unremarkable. No enlarged lymph nodes. IMPRESSION: 1. Perforated diverticulitis with foci of air adjacent to the sigmoid colon (series 300 image 49). This is seen with diffuse annular thickening and submucosal enhancement of the distal sigmoid colon and rectum. 2. Mild dependent pelvic fluid which is likely reactive in nature. 3. No abscess detected. 4. No other acute findings. 5. Incidental findings as described. Communications: Verify Receipt Electronically signed by: Clayton Bethea MD 02/23/24 05:35 AM Discharge Instructions Given to Patient (Per Discharging Provider) Lul Lopez were admitted with a perforated diverticulum and a severe infection. You were seen by the General Surgeon who recommended conservative treatment with antibiotics and bowel rest rather than surgery. You were treated with IV antibiotics while in the hospital. They recommended discharging you home with 2 more weeks (14 more days) of oral antibiotics. Please take the antibiotics as prescribed. Also prescribed you a probiotic to help while on the antibiotics. General surgery recommends that you continue with a low fiber diet for 3 more weeks. Additional information about a low fiber diet is provided for you in your discharge packet. Please keep close follow up with your primary care provider and general surgery after discharge. Please do not hesitate to come back to the emergency room if your symptoms worsen or return. It was a pleasure taking care of you while you were here. Total Time Total Time Spent Total Time Spent (In Minutes): > 30 minutes
== END 2024-02-25 17:35 | disposition home or self-care (01) | DRG 872 ==
LOC: ED 23:24 → SUATTDRO 02-23 06:48 → EDINP 02-23 06:48 → 2N 02-23 10:47